=== PATIENT | male | born 1980 | race Two or more races ===

== ENCOUNTER 2018-07-17 10:26 | Emergency (ER) | payer SELFPAY ==
[~2018-07-17] VITALS: Ht 172.7 cm; Wt 113.4 kg
--- NOTE | 2018-07-17 10:55 | PHYS DOC ---
Past Medical History Past Medical History: No Pertinent History Adult General Chief Complaint Chief Complaint: UPPER EXTREMITY INJURY HPI HPI Patient is a 37-year-old male who presents to the emergency department for evaluation. He was placing siding on the home, and standing on an 8 foot ladder when he lost his balance and fell. He complains primarily of pain in his right wrist, where he has a deformity, as well as his right shoulder. Denies any other painful areas or injuries. Denies any headache or neck pain, back pain, or other extremity pain. He denies any numbness or weakness, is able to fully flex and extend the digits of his right hand. Palpation of the affected area worsens his pain. There are no alleviating factors to his symptoms. History was obtained via a nurse, who speaks Kyrgyz. Review of Systems Review of Systems Constitutional: Denies fever or chills [] Eyes: Denies change in visual acuity, redness, or eye pain [] HENT: Denies nasal congestion or sore throat [] Respiratory: Denies chest wall pain or shortness of breath [] GI: Denies abdominal pain, nausea, vomiting [] : Denies dysuria or hematuria [] Musculoskeletal: Denies back pain or joint pain , except as noted in the history of present illness.[] Integument: Denies rash or skin lesions [] Neurologic: Denies headache, focal weakness or sensory changes [] Current Medications Current Medications Current Medications Medications (Trade) Dose Ordered Sig/Racheal Start Time Stop Time Status Last Admin Dose Admin Acetaminophen/ Codeine Phosphate (Tylenol #3) 1 tab 1X ONCE 07/17/18 11:00 07/17/18 11:01 DC 07/17/18 10:59 1 TAB Lidocaine HCl (Lidocaine 1% 20ml Vial) 20 ml 1X ONCE 07/17/18 12:45 07/17/18 12:46 DC 07/17/18 13:13 20 ML Lidocaine/ Epinephrine (LIDOCAINE 1%-EPI 1:100,000 Multi-Dose) 20 ml STK-MED ONCE 07/17/18 11:38 07/17/18 11:39 DC Allergies Allergies Allergies Coded Allergies Type Severity Reaction Last Updated Verified No Known Drug Allergies 07/17/18 No Physical Exam Physical Exam PHYSICAL EXAM: CONSTITUTIONAL: Well developed, well nourished HEAD: normocephalic, atraumatic EENT: PERRL, EOMI. Conjunctivae normal color, sclerae non-icteric; moist mucous membranes. NECK: Supple, non-tender; no meningismus.There is full, painless range of motion of the cervical spine, without any focal bony midline tenderness to palpation. LUNGS: Lungs CTA, breathing even and unlabored. Normal air movement. HEART: Regular rate and rhythm, no murmur CHEST: No deformity; non-tender ABDOMEN: The abdomen is soft, and non-tender, no masses or bruits. EXTREM: There is tenderness to palpation and a deformity in the right wrist, the hand itself is atraumatic, digits are atraumatic, there is no significant tenderness to palpation to the mid and proximal right forearm, elbow, or distal humerus, there is mild tenderness to palpation to the right shoulder, the remainder of extremities are atraumatic, with Normal ROM; no deformity, no calf tenderness. Normal pulses palpable in all extremities. There is no pedal edema. SKIN: No rash; no diaphoresis NEURO: Alert; normal speech and cognition; CN's grossly intact; strength grossly intact without focal deficit. BACK: No CVA TTP.There is no bony tenderness to palpation of the thoracic or lumbar spine. Current Patient Data Vital Signs Vital Signs Date Time Temp Pulse Resp B/P (MAP) Pulse Ox O2 Delivery O2 Flow Rate FiO2 07/17/18 12:41 90 16 149/83 (105) 97 Room Air 07/17/18 10:35 97.8 97.8 EKG EKG [] Radiology/Procedures Radiology/Procedures [ER physician preliminary x-ray interpretation shows a distal radial fracture with probable ulnar styloid fracture as well. Shoulder x-ray and forearm x-ray are otherwise unremarkable.] Course & Med Decision Making Course & Med Decision Making Pertinent Imaging studies reviewed. (See chart for details) [1:00 PM: The patient's condition remained stable. PMS intact. He has no signs or symptoms of carpal tunnel compression at this time. I did place a hematoma block, using 1% lidocaine, with adequate anesthesia. Attempts at manual reduction did show some mild clinical movement of the bone fragments, but on repeat radiographic imaging that does not appear to be any change in the fracture fragment orientation. The patient has been splinted. I discussed case with Dr. Waldrop, retail center receptionist for orthopedics, who will see the patient in clinic as an outpatient. He was satisfied with the attempted reduction did not feel that the patient needed emergent reduction at this time. The patient has been briefed on the x-ray findings, the need for close follow-up and likely surgical repair, and return precautions.. This was done with the help of a bilingual staff member.] PROCEDURE NOTE: After the skin was prepped with Betadine, 10 mL of 1% lidocaine without epinephrine was instilled at the fracture site using a hematoma block, via the dorsal approach. Good anesthesia was obtained. Attempts at manual reduction were undertaken, and it seemed clinically that there was some movement of the fracture fragments, although manipulation was somewhat difficult due to the patient's body habitus. Patient was splinted, with a sugar tong splint, and postreduction attempt x-rays were obtained, which did not show any significant change in the fracture alignment. Dragon Disclaimer Dragon Disclaimer This electronic medical record was generated, in whole or in part, using a voice recognition dictation system. Departure Departure Impression: Primary Impression: Distal radius fracture Disposition: HOME, SELF-CARE Condition: STABLE Referrals: GRACE WALDROP II, MD Patient Instructions: Arm Sling Use-Brief, Cast or Splint Care, Wrist Fracture Scripts Acetaminophen With Codeine (TYLENOL WITH CODEINE #3 TABLET) 1 Each Tablet 1 TAB PO PRN Q6HRS PRN for PAIN, #10 TAB Prov: AZUL MAO MD 07/17/18 AZUL MAO MD Jul 17, 2018 10:55
[2018-07-17] MEDS ORDERED: ACETAMINOPHEN/CODEINE 300/30MG TABLET. PO ONE (11:00)
[2018-07-17] MEDS ORDERED: LIDOCAINE 1%/EPI 1:100,000 20 ML VIAL. ONE (11:38)
[2018-07-17] MEDS ORDERED: LIDOCAINE 1% Multi-Dose 20 ML VIAL. ONE (11:42)
--- NOTE | 2018-07-17 12:26 | RAD ---
Examination: WRIST 3V RIGHT History: FALL. RIGHT WRIST PAIN Comparison/Correlation: None Findings: Three-view examination of the right wrist and 2 view examination right forearm were performed. Transverse fracture through the distal radial metaphysis is noted with dorsal displacement of the distal fracture fragment by nearly one half of the shaft width. Comminuted fragments are present. Displaced avulsion fracture of the ulnar styloid is also present. Carpal bones are unremarkable. The proximal radius and proximal ulna are unremarkable. The elbow joint is nearly completely extended and as a result evaluation for joint effusion is very limited at this site. Impression: Transverse, displaced distal radial metaphyseal comminuted fracture. Ulnar styloid avulsion fracture. Electronically signed by: Yordan Mckeon MD (07/17/2018 12:23 PM) [facility]
--- NOTE | 2018-07-17 12:27 | RAD ---
Examination: SHOULDER 2+V RIGHT History: FALL. RIGHT SHOULDER PAIN Comparison/Correlation: None Findings: Total 3 images of the right shoulder were obtained. Joint spaces are normal. No acute fracture or bony destruction. Soft tissues are unremarkable. Minimal right lateral upper thoracic pleural thickening is questioned. No definite degenerative change. Impression: No acute process. Electronically signed by: Yordan Mckeon MD (07/17/2018 12:23 PM) [facility]
--- NOTE | 2018-07-17 12:36 | RAD ---
Examination: FOREARM RIGHT History: R/U PROXIMAL RIGHT FOREARM INJURY. RIGHT WRIST PAIN AFTER FALL Comparison/Correlation: None Findings: Three-view examination of the right wrist and 2 view examination right forearm were performed. Transverse fracture through the distal radial metaphysis is noted with dorsal displacement of the distal fracture fragment by nearly one half of the shaft width. Comminuted fragments are present. Displaced avulsion fracture of the ulnar styloid is also present. Carpal bones are unremarkable. The proximal radius and proximal ulna are unremarkable. The elbow joint is nearly completely extended and as a result evaluation for joint effusion is very limited at this site. Impression: Transverse, displaced distal radial metaphyseal comminuted fracture. Ulnar styloid avulsion fracture. Electronically signed by: Yordan Mckeon MD (07/17/2018 12:33 PM) [facility]
[2018-07-17 12:41] VITALS: BP 149/83
[2018-07-17] MEDS ORDERED: LIDOCAINE 1% Multi-Dose 20 ML VIAL. INJ ONE (12:45)
--- NOTE | 2018-07-17 12:50 | RAD ---
Examination: WRIST 3V RIGHT History: POST REDUCTION Comparison/Correlation: 07/17/2018 right wrist x-ray exam performed earlier on the same day Findings: Total 3 images of the right wrist were obtained. Overlying splint or cast material identified. There is no significant change in posterior displacement of the distal radial metaphyseal fracture fragment in relation to the fragment. Comminuted fragments again seen. Ulnar styloid avulsion fracture fragment is obscured by overlying cast or splint material. Impression: Distal radial displaced fracture fragment orientation is unchanged. Electronically signed by: Yordan Mckeon MD (07/17/2018 12:47 PM) [facility]
[2018-07-17] MEDS ORDERED: ACET-704 PO (13:05)
[2018-07-18] MEDS ORDERED: OXYC1TAB15 PO (13:56)
[2018-07-19] MEDS ORDERED: HYDR-3165 PO (15:56)
== END 2018-07-17 13:15 | disposition home or self-care (01) ==
LOC: ER 10:26
DX: S59.291A Other physeal fracture of lower end of radius, right arm, initial encounter for closed fracture (principal); M25.511 Pain in right shoulder; W11.XXXA Fall on and from ladder, initial encounter; Y93.89 Activity, other specified; Y92.009 Unspecified place in unspecified non-institutional (private) residence as the place of occurrence of the external cause; Y99.8 Other external cause status
CPT/HCPCS: 25605; 73030; 73090; 73110; 99284

== ENCOUNTER 2018-07-18 11:58 | Emergency (ER) | payer SELFPAY ==
[~2018-07-18] VITALS: Ht 165.1 cm; Wt 113.4 kg
[~2018-07-18 11:58] MED LIST: ACET-704 PO
[2018-07-18 12:56] VITALS: BP 146/93
[2018-07-18] MEDS ORDERED: OXYC1TAB15 PO (13:56)
--- NOTE | 2018-07-18 13:57 | PHYS DOC ---
Past Medical History Past Medical History: No Pertinent History (DIMITRIOS MCGEE APRN) Past Surgical History: No Surgical History (DIMITRIOS MCGEE APRN) Alcohol Use: Occasionally Drug Use: None (DIMITRIOS MCGEE APRN) Adult General Chief Complaint Chief Complaint: UPPER EXTREMITY PAIN HPI HPI Patient is a 37 year old male who presents to the ED today to be evaluated for pain to the right upper extremity, patient fell yesterday, fractured his right wrist, was seen in the ED, was sent home on Tylenol 3. Patient states the pain medicine is not working. Patient denies any new injuries. (DIMITRIOS MCGEE APRN) Review of Systems Review of Systems Constitutional: Denies fever or chills [] Musculoskeletal: Reports right upper extremity pain Integument: Denies rash or skin lesions [] Neurologic: Denies headache, focal weakness or sensory changes [] All other systems were reviewed and found to be within normal limits, except as documented in this note. (DIMITRIOS MCGEE APRN) Current Medications Current Medications Current Medications Medications (Trade) Dose Ordered Sig/Racheal Start Time Stop Time Status Last Admin Dose Admin Ketorolac Tromethamine (Toradol Im) 60 mg 1X ONCE 07/18/18 14:00 07/18/18 14:01 DC 07/18/18 14:19 60 MG Morphine Sulfate (Morphine Sulfate) 5 mg 1X ONCE 07/18/18 14:00 07/18/18 14:01 DC 07/18/18 14:19 5 MG (HARLEY JONES MD) Allergies Allergies Allergies Coded Allergies Type Severity Reaction Last Updated Verified No Known Drug Allergies 07/17/18 No (HARLEY JONES MD) Physical Exam Physical Exam Constitutional: Well developed, well nourished, no acute distress, non-toxic appearance. [] Skin: Warm, dry, no erythema, no rash. [] Back: No tenderness, no CVA tenderness. [] Extremities: Right upper extremity is splinted, full range of motion to the right fingers. Mild edema noted to the right fingers. Adequate radial, medial, ulnar sensation to the right fingers. Neurologic: Alert and oriented X 3, normal motor function, normal sensory function, no focal deficits noted. [] Psychologic: Affect normal, judgement normal, mood normal. [] (DIMITRIOS MCGEE APRN) Current Patient Data Vital Signs Vital Signs Date Time Temp Pulse Resp B/P (MAP) Pulse Ox O2 Delivery O2 Flow Rate FiO2 07/18/18 12:56 97.7 100 18 146/93 (110) 99 Room Air 97.7 (HARLEY JONES MD) EKG EKG [] (DIMITRIOS MCGEE APRN) Radiology/Procedures Radiology/Procedures [] (DIMITRIOS MCGEE APRN) Course & Med Decision Making Course & Med Decision Making Pertinent Labs and Imaging studies reviewed. (See chart for details) This is a 37-year-old male patient presenting to the ED today with increased pain from an injury he sustained yesterday. He was seen in the ED. He has a displaced distal radial metaphyseal fracture as well as ulnar styloid fracture to the right. He was splinted, sent home with Tylenol 3, it is not working for his pain. I switched patient to oxycodone. Requested him to contact the orthopedic doctor today and set up a follow-up appointment, he states they had called earlier and the orthopedic doctor told them he will call them back. Requested them to call again and get an appointment to follow-up in the office. Ice elevation patient requested Threat Monitoring Analyst line was used for French. (DIMITRIOS MCGEE APRN) Course & Med Decision Making Staff Physician Addendum: I was working in the ER during the course of this patient's visit. I was available for consultation as needed, but I was not directly involved in the care of this patient. (HARLEY JONES MD) Dragon Disclaimer Dragon Disclaimer This electronic medical record was generated, in whole or in part, using a voice recognition dictation system. (DIMITRIOS MCGEE APRN) Departure Departure Impression: Primary Impression: Right wrist fracture Additional Impression: Inadequate pain control Disposition: HOME, SELF-CARE Condition: STABLE Referrals: NO PCP (PCP) GRACE WALDROP II, MD Call his office today and set up a follow-up appointment Patient Instructions: Wrist Fracture Additional Instructions: You were evaluated in the emergency room for right wrist fracture. Please contact the orthopedic doctor's office today and request an appointment to be seen in the clinic. Try to ice and elevate the extremity. Take the oxycodone prescribed, do not take the Tylenol 3 Scripts Oxycodone/Apap 5-325 (PERCOCET 5-325 MG TABLET ) 1 Each Tablet 1-2 TAB PO PRN Q6HRS PRN for PAIN, #45 TAB 0 Refills Prov: DIMITRIOS MCGEE APRN 07/18/18 Problem Qualifiers Primary Impression: Right wrist fracture Encounter type: initial encounter Fracture type: closed Qualified Codes: S62.101A - Fracture of unspecified carpal bone, right wrist, initial encounter for closed fracture DIMITRIOS MCGEE APRN Jul 18, 2018 13:57 HARLEY JONES MD Jul 18, 2018 17:50
[2018-07-18] MEDS: KETOROLAC 60 MG/2 ML VIAL. IM ONE ×2 (14:00→14:19)
[2018-07-18] MEDS: MORPHINE SULFATE 10 MG/ML VIAL. IM ONE ×2 (14:00→14:19)
[2018-07-19] MEDS ORDERED: ROPIVacaine 0.5% PF 20 ML VIAL. ONE (09:34)
[2018-07-19] MEDS ORDERED: BUPIVACAINE MPF 0.5% 30 ML VIAL. ONE (09:34)
[2018-07-19] MEDS ORDERED: IBUP-1027 PO (11:20)
[2018-07-19] MEDS ORDERED: HYDR-3165 PO (15:56)
== END 2018-07-18 14:24 | disposition home or self-care (01) ==
LOC: ER 11:58
DX: S62.101A Fracture of unspecified carpal bone, right wrist, initial encounter for closed fracture (principal); W18.39XA Other fall on same level, initial encounter; Y93.89 Activity, other specified; Y92.89 Other specified places as the place of occurrence of the external cause; Y99.8 Other external cause status
CPT/HCPCS: 96372; 99284; J1885; J2270; 29125; J2795; J3490

== ENCOUNTER 2018-07-19 10:49 | Day surgery (SDC) | payer SELFPAY ==
[~2018-07-19 10:49] MED LIST changes: +BUPIVACAINE MPF 0.5% 30 ML VIAL. ONE; +KETOROLAC 60 MG/2 ML VIAL. IM ONE; +MORPHINE SULFATE 10 MG/ML VIAL. IM ONE; +OXYC1TAB15 PO; +ROPIVacaine 0.5% PF 20 ML VIAL. ONE
[2018-07-19] MEDS ORDERED: IBUP-1027 PO (11:20)
[2018-07-19] MEDS ORDERED: FAMOTIDINE 20 MG/2 ML VIAL ONE (11:52)
[2018-07-19] MEDS ORDERED: PROPOFOL 20 ML IV ONE (11:52)
[2018-07-19] MEDS ORDERED: DEXAMETHASONE SOD PHOS 20 MG/5 ML VIAL. ONE (11:52)
[2018-07-19] MEDS ORDERED: ONDANSETRON PF 4 MG/2 ML VIAL. ONE (11:52)
[2018-07-19] MEDS ORDERED: LIDOCAINE 2% PF 5 ML VIAL. ONE (11:52)
[2018-07-19] MEDS ORDERED: MIDAZOLAM HCL/PF 2 MG/2 ML VIAL. ONE (11:53)
[2018-07-19] MEDS ORDERED: ROCURONIUM 50 MG/5 ML VIAL. ONE (11:53)
[2018-07-19] MEDS ORDERED: SUCCINYLCHOLINE 200 MG/10 ML VIAL. ONE (11:53)
[2018-07-19] MEDS ORDERED: fentaNYL PF VIAL 100 MCG/2 ML VIAL ONE ×3 (11:53→16:37)
[2018-07-19] MEDS ORDERED: IV RINGERS,LACTATED 1000ML 1,000 ML IV SCH (12:00)
[2018-07-19] MEDS ORDERED: PHENYLEPHRINE in 0.9% NACL PF 1 MG/10 ML SYRINGE. IV ONE (14:23)
[2018-07-19] MEDS ORDERED: SEVOFLURANE > 120 MINUTES. IH ONE (14:29)
[2018-07-19] MEDS ORDERED: BUPIVACAINE MPF 0.5% 30 ML VIAL. IJ ONE (15:41)
[2018-07-19] MEDS ORDERED: HYDR-3165 PO (15:56)
--- NOTE | 2018-07-19 15:59 | DISCH ---
DISCHARGE INSTRUCTIONS Condition on Discharge Condition on Discharge: Stable Activity After Discharge Activity Instructions for Disc: Other, see below (grasping or lifting, fine motor use only such as eating writing or typing) Weight Bearing Status after Di: Non weight bearing Diet after Discharge Diet after Discharge: Regular Wound Incision Care Wound/Incision Care: Ice to area for comfort, Keep wound elevated, Do not change dressing Contacting the after DC Call your doctor for: Concerns you may have Follow-Up Follow up with: Dr. Baeza 1 week SYDNIE BAEZA MD Jul 19, 2018 15:59
[2018-07-19] MEDS ORDERED: MORPHINE SULFATE 4 MG/ML VIAL. ONE (16:07)
[2018-07-19] MEDS ORDERED: PROCHLORPERAZINE 10 MG/2 ML VIAL. ONE (16:08)
[2018-07-19] MEDS: fentaNYL PF VIAL 100 MCG/2 ML VIAL IV PRN ×3 (16:10→17:10)
--- NOTE | 2018-07-19 16:11 | PDOC4 ---
Operative Note Operative Note Date of surgery: 07/19/2018 Preoperative diagnosis: Displaced intra-articular right distal radius fracture Postoperative diagnosis: Same with 2 part intra-articular distal radius fracture Operative procedure: Operative reduction internal fixation 2 part intra- articular right distal radius fracture Surgeon: Felisha. Anesthesia: Gen. Estimated blood loss: 10 mL Complications: None Operative indications: Patient is a 37-year-old male that was seen from an injury in the emergency department over the weekend having a displaced intra-articular distal radius fracture. I had seen him yesterday in clinic and explained with the assistance of an circuit judge the involvement of his joint surface and the poor alignment and the fact that closed reduction was already attempted at the emergency room unsuccessfully and I do not expect additional attempts without operative fixation would be successful. I discussed the possibility of plate and screw fixation and the rationale for it to obtain anatomic as possible joint alignment for this otherwise very active 37-year-old male. All his questions were answered he wishes to proceed with surgical evaluation and treatment. Operative text: Patient was identified procedure verified patient placed in the supine position on the operating table. After adequate amounts of general anesthesia were administered a tourniquet was placed on the upper arm and the right upper extremity was prepped and draped in standard sterile fashion. After timeout was performed patient procedure identified and verified the right upper extremity was exsanguinated by Esmarch bandage tourniquet inflated to 300 mmHg and a standard Damir volar approach was carried out to the distal radius. Due to his comminution and impaction dorsally I made 2 small dorsal incisions avoiding the extensor tendons and after a wide DVR cross lock distal radius Eriberto plate was localized and a nonlocking screw placed in the sliding hole for later positioning [id number] and other reduction periarticular forceps were used to achieve near anatomic reduction at the joint surface. Distal locking screws were placed under fluoroscopic guidance checking on their positioning length and reduction. Proximal row screws were likewise drilled with locking screws and 2 additional shaft screws nonlocking were drilled. Reduction and hardware placement were all checked under fluoroscopic guidance. Thorough irrigation carried out normal saline solution closure accomplished with buried Vicryl suture subcuticular Monocryl Steri-Strips and Mastisol were applied followed by sterile dressings and a Orthoplast splint. Fingers were noted be warm pink find deflation of tourniquet patient was returned recovery room in stable condition having tolerated procedure well SYDNIE MAY MD Jul 19, 2018 16:11
[2018-07-19] MEDS ORDERED: ALBUTEROL SULFATE 2.5 MG/3 ML NEBU. NEB PRN (16:15)
[2018-07-19] MEDS ORDERED: ALBUTEROL SULFATE 2.5 MG/3 ML NEBU. ONE (16:22)
[2018-07-19] MEDS ORDERED: HYDROmorphone 2 MG/ML VIAL ONE (16:37)
[2018-07-19] MEDS: HYDROmorphone 2 MG/ML VIAL IV PRN ×4 (16:40→17:39)
[2018-07-19] MEDS ORDERED: ONDANSETRON PF 4 MG/2 ML VIAL. IV PRN (16:45)
[2018-07-19] MEDS ORDERED: MORPHINE SULFATE 4 MG/ML VIAL. IV PRN (16:45)
[2018-07-19] MEDS ORDERED: MORPHINE SULFATE 2 MG/ML VIAL. IV PRN (16:45)
[2018-07-19] MEDS ORDERED: KETOROLAC 30 MG/ML VIAL. IV PRN (16:45)
[2018-07-19] MEDS ORDERED: fentaNYL PF VIAL 100 MCG/2 ML VIAL IV PRN (16:45)
[2018-07-19] MEDS ORDERED: PROCHLORPERAZINE 10 MG/2 ML VIAL. IV PRN (16:45)
[2018-07-19] MEDS ORDERED: HYDROcodone/APAP 7.5/325MG 1 TAB TABLET PO ONE (17:00)
[2018-07-19] MEDS ORDERED: IPRATRPIUM/ALBUTEROL 0.5/2.5MG 3 ML NEBU. NEB ONE (17:00)
[2018-07-19 18:00] VITALS: BP 133/99
== END 2018-07-19 18:07 | disposition home or self-care (01) ==
LOC: SURG 10:49
PROVIDERS: ATTEND Orthopaedic Surgery
DX: S52.571A Other intraarticular fracture of lower end of right radius, initial encounter for closed fracture (principal); F17.210 Nicotine dependence, cigarettes, uncomplicated; Z79.899 Other long term (current) drug therapy; X58.XXXA Exposure to other specified factors, initial encounter; Y93.89 Activity, other specified; Y92.89 Other specified places as the place of occurrence of the external cause; Y99.8 Other external cause status
CPT/HCPCS: 25608; 76000; 94640; A7015; C1713; J0330; J0696; J0780; J1100; J1170; J1885; J2001; J2250; J2270; J2370; J2405; J2704; J3010; J3490; J7120; J7613; J2795